=== PATIENT | male | born 1960 | race Caucasian/White ===

== ENCOUNTER 2023-08-11 09:24 | Day surgery (SDC) | payer MEDICARE, SELFPAY ==
[2023-07-07 10:30] VITALS: BMI 26.7
[2023-07-21 11:00] VITALS: BMI 26.7
--- NOTE | 2023-08-11 11:19 | SUR.PREOP ---
BLOOD SUGAR 78. PT ASYMPTOMATIC. PT STATES HE TOOK HIS GLIMEPRIDE THIS AM. DR SIEGEL NOTIFIED.
[2023-08-11 11:20] VITALS: BP 123/82; PULSE 78; RESP 16; TEMP 36.4; O2SAT 100; BMI 26.2
[2023-08-11 11:20] LABS: Glucose Point of Care 78 mg/dl (65-105)
[2023-08-11] MEDS: LACTATED RINGERS 1,000 ML 150 ML IV CONT (11:23)
--- NOTE | 2023-08-11 11:40 | PM.HPGS ---
History of Present Illness History of Present Illness Consent: Risks, benefits, and alternatives have been discussed and questions answered. Patient agrees to proceed with procedure. Chief complaint: History of Colon Polyps Narrative: Spencer Prasad is a 63 year old male Presents for screening colonoscopy. Patient's current weight appetite and bowel movements are normal. Patient denies abdominal pain. He has had no bleeding. Family history noncontributory. Previous colonoscopy 2018 revealed a benign adenomatous colon polyp. Patient presents today for surveillance colonoscopy. Review of Systems Review of Systems: systems noncontributory. [facility] Past Medical History Medical History (Updated 08/11/23 @ 11:41 by Phillip Klein MD) Diabetes Hypertension Migraines Surgical History Surgical History History of cholecystectomy 2002 Family History Family History Father Family history of liver disease Alcoholism Mother Family history of malignant neoplasm of breast in first degree relative Sibling Diabetes mellitus Social History Social History Smoking packs per day: 1 Smoking cigarettes per day: 20.0 Years smoked: 5 Smoking pack-years: 5.00 Smoking status: Former smoker Tobacco type: cigarettes Second hand tobacco smoke exposure: No Smoking end date: 11/21/81 Alcohol intake: never Substance use: never Substance use type: does not use Living arrangements: with family Additional living arrangements comments: DISABLED ADULT DAUGHTER LIVES WITH PT/SPOUSE AND WILL BE WITH HIM DOS Spiritual care concerns: No Meds Home Medications and Allergies Home Medications Medication Instructions Recorded Confirmed Type aspirin 81 mg tablet,delayed 81 mg PO DAILY 11/05/19 08/11/23 History release (Adult Low Dose Aspirin) lisinopril 40 mg tablet 40 mg PO DAILY 11/05/19 08/11/23 History metformin 500 mg tablet 500 mg PO BID #180 tabs 05/02/20 08/11/23 Rx alogliptin 25 mg tablet 25 mg PO DAILY 06/10/23 08/11/23 History ascorbate calcium (vitamin C) 500 500 mg PO DAILY 06/10/23 08/11/23 History mg tablet carvedilol 12.5 mg tablet 12.5 mg PO Q12H #180 tabs 06/10/23 08/11/23 Rx cholecalciferol (vitamin D3) 25 25 mcg PO DAILY 06/10/23 08/11/23 History mcg (1,000 unit) capsule empagliflozin 25 mg tablet 25 mg PO DAILY 06/10/23 08/11/23 History lorazepam 1 mg tablet 1 mg PO BID PRN anxiety #60 tabs 06/21/23 08/11/23 Rx atorvastatin 80 mg tablet 80 mg PO DAILY #90 tabs 08/01/23 08/11/23 Rx glimepiride 4 mg tablet 4 mg PO BID #180 tabs 08/08/23 08/11/23 Rx Allergies Allergy/AdvReac Type Severity Reaction Status Date / Time No Known Allergies Allergy Unknown Verified 08/11/23 11:25 Vital Signs Vital Signs - 24 hr 08/11/23 11:20 Temperature 97.5 F L Pulse Rate 78 Respiratory Rate 16 Blood Pressure 123/82 Pulse Oximetry 100 Oxygen Delivery Room Air Exam Narrative: Physical exam reveals patient to be alert. Vital signs stable. HEENT exam is unremarkable. Patient is anicteric. Lungs are clear to auscultation and percussion. Is without murmur or extra sounds. Abdomen bowel sounds are present soft nontender with no organomegaly. Digital external rectal exam is normal. Assessment and Plan Assessment and plan (1) History of colon polyps: Code(s): Z86.010 - Personal history of colonic polyps Status: Acute Assessment and Plan: Is a history of benign adenomatous colon polyp removed at the time previous colonoscopy 5 years ago. Plan for surveillance colonoscopy now and consider this a 5 year intervals.
--- NOTE | 2023-08-11 12:00 | SUR.PREOP ---
1130; PT ASKING WHY HE HASN'T GONE TO PROCEDURE YET, EXPLAINED TO PT AND SPOUSE, PREOP INSTRUCTION SHEET SAYS HERE AT 1130 FOR 1300 PROCEDURE. ALSO PT WAS TO ONLY TAKE HIS CARVEDILOL. PT AND SPOUSE VERBALIZED UNDERSTANDING.
--- NOTE | 2023-08-11 12:39 | WPDANESEPPF ---
Anes - Initial Pre Proc Eval Procedure: Operation Date: 08/11/23 13:00 Proposed Procedures p Diagnostic Colonoscopy - Phillip Klein MD Date/Time: 08/11/23 12:39 Surgeon: Phillip Klein MD Pre Op Diagnosis: History of Colon Polyps Patient Data Age: 63 Gender: M Height: 1.8 m Weight: 85.2 kg Last Vital Signs Temp 36.4 C L 08/11/23 11:20 Pulse 78 08/11/23 11:20 Resp 16 08/11/23 11:20 BP 123/82 08/11/23 11:20 Pulse Ox 100 08/11/23 11:20 O2 Del Method Room Air 08/11/23 11:20 Allergies Allergy/AdvReac Type Severity Reaction Status Date / Time No Known Allergies Allergy Unknown Verified 08/11/23 11:25 Home Medications Medication Instructions Recorded Confirmed Type aspirin 81 mg tablet,delayed 81 mg PO DAILY 11/05/19 08/11/23 History release (Adult Low Dose Aspirin) lisinopril 40 mg tablet 40 mg PO DAILY 11/05/19 08/11/23 History metformin 500 mg tablet 500 mg PO BID #180 tabs 05/02/20 08/11/23 Rx alogliptin 25 mg tablet 25 mg PO DAILY 06/10/23 08/11/23 History ascorbate calcium (vitamin C) 500 500 mg PO DAILY 06/10/23 08/11/23 History mg tablet carvedilol 12.5 mg tablet 12.5 mg PO Q12H #180 tabs 06/10/23 08/11/23 Rx cholecalciferol (vitamin D3) 25 25 mcg PO DAILY 06/10/23 08/11/23 History mcg (1,000 unit) capsule empagliflozin 25 mg tablet 25 mg PO DAILY 06/10/23 08/11/23 History lorazepam 1 mg tablet 1 mg PO BID PRN anxiety #60 tabs 06/21/23 08/11/23 Rx atorvastatin 80 mg tablet 80 mg PO DAILY #90 tabs 08/01/23 08/11/23 Rx glimepiride 4 mg tablet 4 mg PO BID #180 tabs 08/08/23 08/11/23 Rx Laboratory Tests 08/11/23 11:15 POC Capillary Glucose 78 mg/dl (65-105) Patient hx anesthesia problems: none Family hx anesthesia problems: none Results Review: All pre-operative results and documents have been reviewed as part of the pre-operative evaluation. [facility] Past Medical History Medical History Diabetes Hypertension Migraines Surgical History Surgical History History of cholecystectomy 2002 Family History Family History Father Family history of liver disease Alcoholism Mother Family history of malignant neoplasm of breast in first degree relative Sibling Diabetes mellitus Social History Social History Smoking packs per day: 1 Smoking cigarettes per day: 20.0 Years smoked: 5 Smoking pack-years: 5.00 Smoking status: Former smoker Tobacco type: cigarettes Second hand tobacco smoke exposure: No Smoking end date: 11/21/81 Alcohol intake: never Substance use: never Substance use type: does not use Living arrangements: with family Additional living arrangements comments: DISABLED ADULT DAUGHTER LIVES WITH PT/SPOUSE AND WILL BE WITH HIM DOS Spiritual care concerns: No Anes - Eval Final PreProcedure Day of Procedure 08/11/23 12:39 Patient weight: overweight Heart: regular rate and rhythm Lungs: decreased breath sounds Airway: Mallampati scale class II Neurological: alert and oriented Last oral intake: >/= 8 hours ASA classification: III Emergent: no Anesthetic plan: proceed Anesthesia type and monitoring: general GIVS and standard monitoring Results Review: All pre-operative results and documents have been reviewed as part of the pre-operative evaluation. Informed Consent: The patient's anesthetic plan and its attendant risks and benefits were discussed with the patient/family/POA. Questions were solicited and answers provided to the satisfaction of the patient/family/POA.
[2023-08-11 13:12] VITALS: BP 111/65; PULSE 72; RESP 18; O2SAT 98
[2023-08-11 13:22] VITALS: BP 104/78; PULSE 65; RESP 18; O2SAT 98
--- NOTE | 2023-08-11 13:27 | WPDANESPN ---
Anes - Prog Note Post-Op Date/Time: 08/11/23 13:27 Cardiovascular status: normal Respiratory status: normal Airway patency: baseline Mental status: baseline Post-Op hydration status: normal Vital Signs: Last Vital Signs Temp 36.4 C L 08/11/23 11:20 Pulse 78 08/11/23 11:20 Resp 16 08/11/23 11:20 BP 123/82 08/11/23 11:20 Pulse Ox 100 08/11/23 11:20 O2 Del Method Room Air 08/11/23 11:20 Pain Score (VAS): 0 I/O: Intake & Output 08/10/23 08/11/23 08/11/23 23:59 07:59 15:59 Intake Total 800 Balance 800 08/11/23 11:15 POC Capillary Glucose 78 Patient Feedback: Patient satisfied with anesthetic care.
[2023-08-11 13:32] VITALS: BP 106/75; PULSE 72; RESP 18; O2SAT 99
== END 2023-08-11 13:40 | disposition home or self-care (01) ==
PROVIDERS: PCP Internal Medicine; Visit Provider Internal Medicine Gastroenterology
PROC: 0DJD8ZZ Inspection of Lower Intestinal Tract, Via Natural or Artificial Opening Endoscopic (ICD-10-PCS; CPT 45378; principal; 2023-08-11 13:00)
DX: Z86.010 Personal history of colon polyps (principal); K64.8 Other hemorrhoids
CPT/HCPCS: 45378

== ENCOUNTER 2024-12-04 01:15 | Day surgery (SDC) | payer MEDICARE, SELFPAY ==
[2024-11-26 11:38] VITALS: BMI 26.7
--- NOTE | 2024-11-26 12:03 | PC.NURSE ---
Report to the Outpatient Waiting Room, entrance under the green pavilion located off [facility], at time ___9:00AM____ on date ___12/04/24____. Planned Procedure Time: ___11:00AM .? Time changes happen often and if your time is changed the preop area will call you the afternoon before. - You and your visitor will be asked to self-screen and do not enter if you have any COVID symptoms. Please call surgeon if you need to reschedule. - A mask is optional within the hospital at this time. Patients may have clear liquids (water, carbonated beverages, clear teas, apple juice) until 3 hours prior to surgery (8:00AM) with a maximum of 20 ounces. - No food from midnight until time of surgery and no smoking. This includes no chewing gum, candy or mints. Take only the following medications with a SIP of water on the morning of surgery: ____LORAZEPAM NEEDED FOR ANXIETY DO NOT STOP ANY OF YOUR OTHER PRESCRIPTION MEDICATIONS PRIOR TO SURGERY EXCEPT THE FOLLOWING Medications to discontinue per physician ___HOLD ALL VITAMINS/SUPPLEMENTS 3 DAYS PRE-OP PER ANESTHESIA Date to take last dose____11/30/24 Please no make-up, nail turkish, hairspray, perfume, deodorant, or body powder the day of surgery.? No jewelry (including any body piercings) or valuables the day of surgery, leave them at home.? Please take a shower or bath the night before, or the morning of, surgery with an antibacterial soap.? Wear comfortable, loose fitting clothing.? Children are encouraged to wear pajamas. - Jewelry must be removed prior to entering the operating room.? Rings and piercings that are not removed may be cut off. - The hospital will not accept responsibility for valuables.? - Please leave all valuables, including medications, at home the day of surgery. If you are going home after surgery, a licensed bus van driver must drive you home.? - NO public transportation without another adult if you receive anesthesia. - We recommend that an adult stay with you for 24 hours following discharge. - We also recommend that you do not drive, make important decision, drink alcoholic beverages, or take any drugs that were not prescribed by your health care provider for at least 24 hours after your discharge time. Follow any additional instructions given to you from your surgeon. Telephone instructions given to ____PATIENT and asked if any additional questions and then verbalized understanding. Patient advised to call surgeon office or pre surgery nurse liaison [phone] if any additional questions.
[2024-12-04] VITALS (11 sets, daily range): BP systolic 91–150; BP diastolic 54–84; PULSE 62–86; RESP 12–17; TEMP 36.3; O2SAT 96–100; BMI 26.6
[2024-12-04 10:35] LABS: Glucose Point of Care 140 mg/dl (65-105)
[2024-12-04] MEDS: LACTATED RINGERS 1,000 ML 30 ML IV CONT ×3 (10:44→14:51)
[2024-12-04] MEDS: KETOROLAC 15 MG/ML VIAL (*BKC) IV PUSH (10:45)
[2024-12-04] MEDS: ACETAMINOPHEN 500 MG TABLET 1000 MG PO (10:45)
--- NOTE | 2024-12-04 12:16 | WPDHPUPDATE1 ---
History and Physical Update Update Date/Time: 12/04/24 12:16 History and Physical has been reviewed, including an updated exam of the patient. There are NO changes in the patient's condition. Risks, benefits, and alternatives have been discussed and questions answered. Patient agrees to proceed with procedure.
[2024-12-04] MEDS: ceFAZolin 2 GM/D5W 50 ML 2 GM/50 ML BAG IVPB (12:28)
[2024-12-04] MEDS: BUPIVACAINE/EPINEPHRINE 0.5% 50 ML VIAL 30 ML INFILTRATE (13:20)
--- NOTE | 2024-12-04 13:56 | W.PM.PROC2 ---
Procedure Note - Detailed Date of Procedure 12/04/24 Pre-op Diagnosis Left Inguinal Hernia Post-op Diagnosis Same (Indirect LIH) Procedure Performed Laparoscopic left inguinal hernia repair with mesh, da Adrien assisted Surgeon Francisco Baker DO Anesthesia General and Local (0.5% bupivacaine with epinephrine) Indications This is a 64-year-old man who presented with a left inguinal hernia. He had initially noticed a bulge about 5-6 months ago, but this did become slightly worse recently after having an upper respiratory infection. He denies any significant pain associated with this. He was found to have a reducible left inguinal hernia on exam. Discussions were made with the patient about treatment options and decision was made to proceed with robotic assisted laparoscopic left inguinal hernia repair with mesh. Findings Robotic assisted laparoscopic left inguinal hernia repair with mesh was performed. The patient was found to have a medium-sized indirect left inguinal hernia. There was a section of his sigmoid colon that was going up close to the opening, but did not appear to be incarcerated. There were no signs of a right inguinal hernia. A robotic transabdominal preperitoneal approach was utilized for repair of the left inguinal hernia. Once a wide enough preperitoneal pocket was created and the hernia sac was reduced, I then placed a large left 3DMax mid mesh overlying the in the entire left myopectineal orifice. No specimens were obtained for pathology. Description of Procedure Procedure as well as risks, benefits, and alternatives were discussed with the patient. Written consent was obtained and placed in chart prior to procedure. Patient was brought back to surgical suite. He was placed supine on operating table. Time-out was done to confirm patient and procedure. He was then intubated by Anesthesia Department. His abdomen was prepped and draped in sterile fashion using chlorhexidine prep. 0.5% bupivacaine with epinephrine was infiltrated at each location for incision. An 8 mm incision was made in the left lateral abdomen, and a 5 mm Optiview trocar was advanced through the abdominal layers under direct visualization. Once inside the abdominal cavity, carbon dioxide insufflation was used to create a pneumoperitoneum. A camera was inserted and the abdominal cavity was inspected. The patient was placed in slight Trendelenburg position. An 8 millimeter incision was made on the right lateral abdomen and an 8 millimeter trocar was inserted under direct visualization. Another 8 millimeter incision was made just superior to the umbilicus and an 8 millimeter trocar was inserted under direct visualization. The 5 mm port was then removed and this was replaced with another 8 mm robotic port. The robotic arms were brought up to the patient's bedside and secured to the ports. The camera and instruments were inserted. I then moved over to the robotic console and took control of the camera and instruments. After careful inspection of the abdominal cavity, I began scoring the peritoneum along the left lower quadrant using scissors with electrocautery. The preperitoneal plane was entered and this was carefully dissected caudally along the inferior epigastric vessels. Careful dissection with scissors with electrocautery and blunt dissection was used to continue this dissection. I dissected far enough laterally to allow for mesh placement, and also dissected medially to identify the pubic arch and John's ligament. The hernia sac was identified and carefully dissected posteriorly. The cord contents were also identified and the peritoneum was carefully dissected far enough posteriorly to allow for mesh placement. Once an adequate pocket was created, I then placed the mesh within the preperitoneal pocket and carefully unfolded it. The mesh was centered on the hernia defect with adequate overlap circumferentially. The inferior edge of the mesh was inspected to ensure that it was far enough away from the peritoneal edge. The mesh appeared in proper position overlying the entire myopectineal orifice. The mesh was secured using 3-0 Vicryl simple interrupted sutures in John's ligament, the superior medial edge, and superior lateral edge of the mesh. The peritoneum was then closed over the mesh using a 3-0 V-lock running absorbable suture. The robotic instruments were removed. The robotic arms were disengaged from the ports and moved away from the bedside. The patient was flattened out in bed, the ports were removed under direct visualization, and the pneumoperitoneum was released. The skin of the incisions was approximated using 4-0 Monocryl subcuticular suture, and Exofin glue was applied on top. The patient was awakened from anesthesia, extubated, and transferred to recovery. Implants Large left 3DMax mid mesh Estimated Blood Loss 5 Complications No immediate complications Condition Stable Disposition Same day [facility] Billing Surgery - Charge Forward: Surgery Billing
[2024-12-04 14:27] LABS: Glucose Point of Care 140 mg/dl (65-105)
[2024-12-04] MEDS: oxyCODONE HCL (*CRX) 5 MG TAB IR PO (15:40)
--- OUTSIDE RECORDS SUMMARY | 2024-12-11 05:05 | XMS_ITS | Patient Health Summary ---
Author Organization [facility] Address [address] [place] [address] Care Team Providers Care Thread Separator Name Role Phone Brenden Storm DO Primary Care Provider [phone] Note from [facility],non-owned Affiliates and Associated Physician Practices is amultiple site organization consisting of ambulatory clinics and hospital sitesin [place], [place], [place] and [place]. This disclosure is being madepursuant to the Care Everywhere program and may not contain all information available regarding this patient. Last updated 18.[facility] Social History Tobacco Use Types Packs/Day Years Used Date Smoking Tobacco: Never Assessed Sex and Gender Information Value Date Recorded Sex Assigned at Not on file Gender Identity Not on file Sexual Orientation Not on file Last Filed Vital Signs Vital Sign Reading Time Taken Comments Blood Pressure - - Pulse - - Temperature - - Respiratory Rate - - Oxygen Saturation - - Inhaled Oxygen Concentration - - Weight 90.7 kg (200 lb) 09/05/2017 8:24 AM CDT Height 182.9 cm (6') 09/05/2017 8:24 AM CDT Body Mass Index 27.12 09/05/2017 8:24 AM CDT Procedures * XR THORACIC SPINE 2VW(Performed 08/22/2017) Results * XR THORACIC SPINE 2VW (08/22/2017 10:05 AM CDT) Anatomical Region Laterality Modality Spine Other Impressions 08/22/2017 11:37 AM CDT IMPRESSION: Mild degenerative disc disease. This report was electronically signed by BAKARI WAGNER MD ??on 08/22/2017 11:37 AM . Narrative 08/22/2017 11:37 AM CDT Exam: ??XR SPINE THORACIC 2 VWS History: ??pain in spoine Comparison: None. Findings: The thoracic kyphosis is normal. No fracture or subluxation is seen. There are a few small scattered endplate osteophytes indicating mild degenerative disc disease. The T7-8 disc space is mildly narrowed. Right upper quadrant clips are noted. Procedure Note Bakari Wagner MD - 02/17/2018 Exam: XR SPINE THORACIC 2 VWS History: pain in spoine Comparison: None. Findings: The thoracic kyphosis is normal. No fracture or subluxation is seen. Thereare a few small scattered endplate osteophytes indicating milddegenerative disc disease. The T7-8 disc space is mildly narrowed. Rightupper quadrant clips are noted. IMPRESSION IMPRESSION: Mild degenerative disc disease. This report was electronically signed by BAKARI WAGNER MD on 08/22/201711:37 AM . Mayelin Matthews PA-C DIAGNOSTIC IMAG ING ORDERABLES Care Teams Thread Separator Relationship Specialty Start Date End Date Brenden Storm DO [address] [facility] [address] [place] [address] PCP - General 03/20/18
--- OUTSIDE RECORDS SUMMARY | 2024-12-11 05:05 | XMS_ITS | Encounter Summary ---
Author Organization [facility] Address [address] [place] [address] Care Team Providers Care Funeral Location Manager Name Role Phone Unavailable Primary Care Provider Unavailabl e Encounter Details Date Type Department Care Team (Latest Contact Info) Description 08/22/2017 Hospital Outpatient Visit [facility] - Orthopedics [address] [facility] [address] [facility] [place] [address] Mayelin Matthews PA-C [address] [place] [address] Discharge Disposition: Home or Self Care Social History Tobacco Use Types Packs/Day Years Used Date Smoking Tobacco: Never Assessed Sex and Gender Information Value Date Recorded Sex Assigned at Not on file Gender Identity Not on file Sexual Orientation Not on file documented as of this encounter Plan of Treatment Not on file documented as of this encounter Procedures Procedure Name Priority Date/Time Associated Diagnosis Comments XR THORACIC SPINE 2VW Routine 08/22/2017 10:05 AM CDT documented in this encounter Results * XR THORACIC SPINE 2VW (08/22/2017 [...] Mayelin Matthews PA-C DIAGNOSTIC IMAG ING ORDERABLES documented in this encounter Visit Diagnoses Diagnosis Pain in thoracic spine documented in this encounter
--- OUTSIDE RECORDS SUMMARY | 2024-12-11 05:05 | XMS_ITS | Referral Summary ---
Author Organization [facility] Address [address] [place] [address] Care Team Providers Care Consumer Attorney Name Role Phone Brenden Storm DO Primary Care Provider [phone] Source Comments [facility],non-owned Affiliates and Associated Physician Practices is amultiple site organization consisting of ambulatory clinics and hospital sitesin [place], [place], [place] and [place]. This disclosure is being madepursuant to the Care Everywhere program and may not contain all information available regarding this patient. Last updated 18.[facility] Social History Tobacco Use Types Packs/Day Years [...] Mass Index 27.12 09/05/2017 8:24 AM CDT Plan of Treatment Not on file Care Teams Consumer Attorney Relationship Specialty Start Date End Date Brenden Storm DO [address] [place] [place], [place] [id number] [facility] - General 03/20/18
--- OUTSIDE RECORDS SUMMARY | 2024-12-11 05:05 | XMS_ITS | Encounter Summary ---
Author Organization [facility] Address [address] [place] [address] Care Team Providers Care Train Master Name Role Phone Unavailable Primary Care Provider Unavailabl e Encounter Details Date Type Department Care Team (Latest Contact Info) Description 09/05/2017 Hospital Outpatient Visit [facility] [address] [facility] [place] [address] Mayelin Matthews PA-C [address] [place] [address] Discharge Disposition: Home or Self Care Social History Tobacco Use Types Packs/Day Years Used Date Smoking Tobacco: Never Assessed Sex and Gender Information Value Date Recorded Sex Assigned at Not on file Gender Identity Not on file Sexual Orientation Not on file documented as of this encounter Plan of Treatment Not on file documented as of this encounter Visit Diagnoses Not on filedocumented in this encounter
--- OUTSIDE RECORDS SUMMARY | 2024-12-11 05:05 | XMS_ITS | Clinical Summary ---
Author Organization [facility] Address [address] [place] [address] Care Team Providers Care Embossing Clerk Name Role Phone Brenden Storm DO Primary Care Provider [phone] Source Comments [facility],non-owned Affiliates and Associated Physician Practices is amultiple site organization consisting of ambulatory clinics and hospital sitesin [place], [place], [place] and [place]. This disclosure is being madepursuant to the Care Everywhere program and may not contain all information available regarding this patient. Last updated 18.[facility] Social History Tobacco Use Types Packs/Day Years [...] 09/05/2017 8:24 AM CDT Plan of Treatment Health Maintenance Due Date Last Done Comments COLOGUARD (AGES 45-75) - COL ON CA SCREENING 1958 COLON MONITORING 1958 COLONOSCOPY - COLON CA SCREENING 1958 CT COLONOGRAPHY - COLON CA SCREENING 1958 Colorectal Cancer Screening 1958 FIT - COLON CA SCREENING 1958 FLEX SIG - COLON CA SCREENING 1958 LIPID TESTING 1958 HEPATITIS C SCREENING 04/20/1976 DTAP/TDAP/TD VACCINES (1 - Tdap) 1977 PNEUMOCOCCAL VACCINE 50+ (1 of 1 - PCV) 2008 ZOSTER VACCINE (1 of 2) 2008 COVID-19 VACCINE ( - 2023-2 5 season) 2024 INFLUENZA VACCINE (#1) 2024 DEPRESSION SCREENING 11/21/2024 Respiratory Syncytial Virus (RSV) Vaccine Pt: or over 60 yrs (1 - 1-dose 75+ series) 2033 HEPATITIS B VACCINE Aged Out No longe r eligible based on patient's age to complete this topic HIB VACCINE Aged Out No longer eligi ble based on patient's age to complete this topic HPV VACCINE Aged Out No longer eligi ble based on patient's age to complete this topic MENINGOCOCCAL (Group B) VACCINE Aged Out No longer eligible based on patient's age to complete this topic MENINGOCOCCAL VACCINE Aged Out No salma laz eligible based on patient's age to complete this topic Care Teams Embossing Clerk Relationship Specialty Start Date End Date Brenden Storm DO [address] [facility] [address] [place] [address] PCP - General 03/20/18
== END 2024-12-04 17:52 | disposition home or self-care (01) ==
PROVIDERS: PCP Internal Medicine; Visit Provider Surgery
PROC: 8E0Y4CZ Robotic Assisted Procedure of Lower Extremity, Percutaneous Endoscopic Approach (ICD-10-PCS; CPT 49650; principal; 2024-12-04 12:00)
DX: K40.90 Unilateral inguinal hernia, without obstruction or gangrene, not specified as recurrent (principal); I10 Essential (primary) hypertension; E11.9 Type 2 diabetes mellitus without complications; E78.00 Pure hypercholesterolemia, unspecified; Z79.82 Long term (current) use of aspirin; Z79.84 Long term (current) use of oral hypoglycemic drugs; Z79.4 Long term (current) use of insulin; Z98.890 Other specified postprocedural states; Z90.49 Acquired absence of other specified parts of digestive tract; Z87.891 Personal history of nicotine dependence; Z80.3 Family history of malignant neoplasm of breast
CPT/HCPCS: 49650; S2900; 82948; A9270; C1781; J0690; J1100; J1596; J1885; J2003; J2250; J2405; J2704; J3010; J7030; J7120